=== PATIENT | female | born 1990 | race Caucasian/White ===

== ENCOUNTER 2016-07-09 05:02 | Inpatient (IN) | payer OTHER ==
[2016-07-09] MEDS ORDERED: ZOLOFT100 MG PO (11:42)
[2016-07-09] MEDS ORDERED: PRENATAL PLUS I1 TAB PO (11:42)
[2016-07-11] MEDS ORDERED: MOTRIN800 MG PO (09:46)
[2016-07-11] MEDS ORDERED: NORCO 325-5 MG1 TAB PO (09:47)
[2016-07-11] MEDS ORDERED: COLACE100 MG PO (09:48)
== END 2016-07-11 10:52 | disposition short-term general hospital (02) | DRG 766 ==
LOC: LDRIP 05:02
PROVIDERS: ADMIT Family Medicine
PROC: 10D00Z1 Extraction of Products of Conception, Low, Open Approach (ICD-10-PCS; principal; 2016-07-09)
PROC: 10907ZC Drainage of Amniotic Fluid, Therapeutic from Products of Conception, Via Natural or Artificial Opening (ICD-10-PCS; principal; 2016-07-09)
DX: O34.219 Maternal care for unspecified type scar from previous cesarean delivery (principal); Z3A.39 39 weeks gestation of pregnancy; Z37.0 Single live birth; Z23 Encounter for immunization; F41.8 Other specified anxiety disorders; E66.9 Obesity, unspecified; O36.63X0 Maternal care for excessive fetal growth, third trimester, not applicable or unspecified; Z14.1 Cystic fibrosis carrier; O69.81X0 Labor and delivery complicated by cord around neck, without compression, not applicable or unspecified
CPT/HCPCS: A9150; J0131; J0690; J1885; J2270; J2405; J2590; J2765; J3010; J3490